=== PATIENT | male | born 1985 | race Caucasian/White ===

== ENCOUNTER 2016-12-16 14:42 | Emergency (ER) | payer OTHER ==
[~2016-12-16] VITALS: Ht 190.5 cm; Wt 100.0 kg
[2016-12-16 14:55] VITALS: BP 171/78
[2016-12-16] MEDS ORDERED: HYDROcodone/APAP 5/325 TABLET PO STA (16:20)
[2016-12-16] MEDS ORDERED: HYDROcodone/APAP 5/325 TABLET ONE (16:45)
== END 2016-12-16 16:58 | disposition home or self-care (01) ==
LOC: ED 16:52
DX: S93.401A Sprain of unspecified ligament of right ankle, initial encounter (principal); X50.1XXA Overexertion from prolonged static or awkward postures, initial encounter; Y93.89 Activity, other specified; Y92.488 Other paved roadways as the place of occurrence of the external cause; Y99.8 Other external cause status
CPT/HCPCS: 99284